=== PATIENT | female | born 1955 | race Caucasian/White ===

== ENCOUNTER → 2019-01-26 07:40 | Outpatient (CLI) | payer OTHER, SELFPAY ==
--- NOTE | 2019-01-26 | DI.MRI.S_ITS ---
PROCEDURE: MR SHOULDER RT WO CON INDICATIONS: Pain in right shoulder TECHNIQUE: Noncontrast oblique coronal T2 fast spin echo with fat saturation, oblique sagittal T1 spin echo and T2 fast spin echo with fat saturation, axial T1 spin echo and T2 fast spin echo with fat saturation through the shoulder. COMPARISON: [facility], , SHOULDER MINIMUM 2 VIEW LEFT, 08/09/2008, 13:43. FINDINGS: Image quality: Excellent. Rotator cuff: Partial-thickness articular and bursal side tear of the infraspinatus tendon without definite full-thickness defect. The supraspinatus tendon appears intact. Teres minor intact. There is mild subscapularis tendinopathy. No atrophy of the rotator cuff musculature Bones and bursae: No bone marrow contusions or fractures. Presumed reactive marrow edema present within the greater tuberosity. Moderate acromioclavicular joint degeneration. The acromion demonstrates conventional anatomy, without an os acromiale. No pathologic subacromial-subdeltoid or subcoracoid bursal fluid is present. Capsule and soft tissues: In the absence of intra-articular contrast, the labrum and glenohumeral ligaments appear intact. The long head of the biceps tendon demonstrates normal location and morphology. The rotator interval appears normal, without fibrosis. The coracohumeral ligament is normal in thickness. IMPRESSION: Partial thickness articular and bursal sided tear of the infraspinatus tendon. Mild subscapularis tendinopathy. Dictated by: Carlos Dumont M.D. on 01/26/2019 at 11:30 Approved by: Carlos Dumont M.D. on 01/26/2019 at 11:37
== END ==
PROVIDERS: Family Provider Family Medicine Geriatric Medicine; PCP Family Medicine Geriatric Medicine; Visit Provider Family Medicine Geriatric Medicine
DX: M25.511 Pain in right shoulder (principal); M75.111 Incomplete rotator cuff tear or rupture of right shoulder, not specified as traumatic
CPT/HCPCS: 73221

== ENCOUNTER → 2021-11-24 06:43 | Outpatient (CLI) | payer OTHER, MEDICARE, SELFPAY ==
--- NOTE | 2021-11-24 | DI.MRI.S_ITS ---
PROCEDURE: MR CERVICAL SPINE WO CON INDICATIONS: Cervicogenic headache TECHNIQUE: Noncontrast sagittal T1 spin echo and T2 fast spin echo, sagittal STIR, foraminal oblique sagittal T2 fast spin echo, and axial gradient echo or T2 fast spin echo through the cervical spine. COMPARISON: None. FINDINGS: Image quality: This examination is limited by involuntary motion artifact. Alignment and Curvature: There is straightening of the normal cervical lordosis. Minimal retrolisthesis is seen at the C4-C5 level. Bone Marrow: Marrow demonstrates normal overall signal. Spinal Cord: Visualized spinal cord has normal size and signal. No cerebellar tonsillar herniation. Paraspinous Soft Tissues: No paravertebral masses. Prevertebral soft tissues are normal in thickness. C2-C3: The disc height is well-preserved. Loss of disc signal is seen at this level. A mild degree of generalized disc osteophyte complex is seen. Mild to moderate facet hypertrophy is seen. There is mild right-sided and [id number] left-sided neural foraminal narrowing. No significant central canal narrowing is seen. C3-C4: Moderate loss of disc height is seen. Loss of disc signal is seen. Mild to moderate disc osteophyte complex is seen. Mild to moderate facet hypertrophy is seen. There is moderate to severe bilateral neural foraminal narrowing seen, right worse than left. Mild to moderate central canal narrowing is seen. C4-C5: Moderate loss of disc height is seen. Loss of disc signal is seen. Moderate generalized disc osteophyte complex is seen. Moderate facet joint hypertrophy is seen. Moderate to severe bilateral neural foraminal narrowing can be seen. Moderate central canal narrowing is seen. C5-C6: Moderate loss of disc height is seen. Loss of disc signal is seen. Moderate generalized disc osteophyte complex is seen. Mild to moderate facet hypertrophy is seen at this level. Moderate to severe bilateral neural foraminal narrowing can be seen, right worse than left. Mild to moderate central canal narrowing is seen. C6-C7: Moderate loss of disc height is seen. Loss of disc signal is seen. Moderate generalized disc osteophyte complex is seen. Mild facet joint hypertrophy is seen. Mild to moderate bilateral neural foraminal narrowing can be seen. Mild central canal narrowing is seen. C7-T1: Moderate loss of disc height is seen. Loss of disc signal is seen. Moderate generalized disc osteophyte complex is seen. Mild facet joint hypertrophy is seen. Moderate bilateral neural foraminal narrowing is seen. No significant central canal narrowing is seen. IMPRESSION: Multiple levels of cervical spine degenerative change are seen, which are worst inferiorly. Straightening of the normal cervical lordosis is seen, which is commonly observed in patients with muscular spasm. Dictated by: Layton Bailon M.D. on 11/24/2021 at 9:07 Approved by: Layton Bailon M.D. on 11/24/2021 at 9:10
== END ==
PROVIDERS: Family Provider Family Medicine Geriatric Medicine; PCP Family Medicine; Referring Provider Physical Medicine & Rehabilitation; Visit Provider Physical Medicine & Rehabilitation
DX: G44.86 Cervicogenic headache (principal); M47.812 Spondylosis without myelopathy or radiculopathy, cervical region
CPT/HCPCS: 72141

== ENCOUNTER → 2022-03-31 08:09 | Outpatient (CLI) | payer OTHER, MEDICARE, SELFPAY ==
[2022-03-31 08:43] LABS: COVID19 -Nasal RAPID POSITIVE (Negative)
--- NOTE | 2022-03-31 08:52 | PC.NURSE ---
Patient tested positive for covid pre-admit. Dr. Krishnamurthy notified that patient is asymptomatic and positive. Patient's procedure cancelled today. Patient notified in person and asked to reschedule. Patient stated understanding and will reschedule with the clinic.
== END ==
PROVIDERS: Family Provider Family Medicine Geriatric Medicine; PCP Family Medicine; Referring Provider Physical Medicine & Rehabilitation; Visit Provider Physical Medicine & Rehabilitation
DX: U07.1 COVID-19 (principal)
CPT/HCPCS: 87635

== ENCOUNTER 2022-05-12 08:10 | Outpatient (CLI) | payer OTHER, MEDICARE, SELFPAY ==
[2022-05-12] VITALS (7 sets, daily range): BP systolic 128–186; BP diastolic 63–91; PULSE 61–77; RESP 14–18; TEMP 36.4; O2SAT 95–100
--- NOTE | 2022-05-12 08:13 | DI.RAD.S_ITS ---
PROCEDURE: PAIN C/T INTERLAMINAR INJECT INDICATIONS: SPINAL STENOSIS COMPARISON: None. FINDINGS: Fluoroscopic spot filming was performed to verify placement of spinal needles at the C6-7 level(s), as labeled on the films. Appropriate location(s) of the needle tip(s) was confirmed by injection of iodinated contrast. IMPRESSION: C6-7 needle placement. Dictated by: Lalita Camarena M.D. on 05/12/2022 at 13:08 Approved by: Lalita Camarena M.D. on 05/12/2022 at 13:09
[2022-05-12] MEDS: MIDAZOLAM 2 MG/2 ML VIAL IV (10:08)
[2022-05-12] MEDS: DEXAMETHASONE 10 MG/ML VIAL 30 MG INJ (10:13)
[2022-05-12] MEDS: IOPAMIDOL 15 ML VIAL 3 ML INJ (10:13)
[2022-05-12] MEDS: BUPIVACAINE 0.25% (PF) VIAL 2 ML INJ (10:13)
--- NOTE | 2022-05-12 10:23 | P.PCN_ITS ---
Date/Time/Diagnoses Date of procedure: 05/12/22 Time of procedure: :23 Pre-procedure diagnosis: 1. CERVICAL STENOSIS, 2. CERVICAL HNP WITH UPPER EXTREMITY RADICULAR FEATURES Post-procedure diagnosis: same Procedure Notes Procedure: 1. FLUORSCOPICALLY GUIDED CONTRAST CONTROLLED INTERLAMINAR EPIDURAL STEROID INJECTION - C6/7 TL VENKATA Indications: Haley is referred by Dr. Peng for treatment of Cervical HNP with Upper Extremity Paresthesias. Physician: Boogie Krishnamurthy Total Fluoroscopy time (seconds): 25 Total sedation minutes: 11 Complications: none Procedure in detail & Post-procedure care: FINDINGS Cervical Stenosis due to disc deterioration and nerve root irritation and nerve root irritation DESCRIPTION OF PROCEDURE Fluoroscopically guided, contrast-controlled C6/7 translaminar epidural steroid injection with conscious sedation. Following review of allergy and review of potential side effects and complications, including, but not necessarily limited to, infection, allergic reaction, local tissue breakdown, temporary as well as permanent nerve injury, stroke, paralysis, and possible , the patient indicated that patient understood and agreed to proceed. An informed consent document was signed by the patient, witnessed by a nurse, and placed in the patient's chart. Additionally, other treatment options including modalities, medications, and physical therapy were reviewed with the patient. After review of previous anaesthesic history and IV conscious sedation the patient was deemed safe to proceed with today?s procedure with IV conscious sedation as ASA class II designation. Safety time-out was performed to confirm patient ID, procedure to be performed and site of procedure. IV sedation was accomplished with a combination of 2mg of Versed administered by the RN after DO order, titrated to patient comfort during the course of the procedure while the patient remained responsive to all verbal commands. In the prone position, following sterile prep and drape of the cervical region, the C6/7 translaminar space was identified fluoroscopically. The skin was anesthetized via a 25-gauge 1.5-inch needle with 1% lidocaine solution. At this point, a 25-gauge, 2.5-inch short bevel spinal needle was atraumatically introduced and advanced under fluoroscopic guidance into epidural space at the C6/7 translaminar space. Depth was confirmed on lateral view. Radiological data, including multiple fluoroscopic views of the cervical spine, reveal a spinal needle at the C6/7 translaminar space. Lateral views then show placement of the needle in the epidural space. Subsequent views show contrast material flowing superiorly and inferiorly in the epidural space. DSA fluoroscopy with live contrast injection, once again, confirmed no vascular or intrathecal uptake. At this point, using loss of resistance technique with saline and air, the epidural space was entered. Following negative aspiration, injection of approximately 1.5 cc of Isovue-[id number] with live fluoroscopy in the AP view confirmed epidural flow in the epidural space without vascular or intrathecal uptake observed. Subsequently, a test dose of 1cc of 1% lidocaine solution was injected and patient was observed for two minutes without signs or symptoms of complications, including abdominal pain, shortness of breath, bilateral upper or lower extremity weakness, nausea and vomiting, prior to steroid injection. At this point, 3cc or 30mg of dexamethasone was then injected without incident. The patient tolerated the procedure well without signs or symptoms of compl ications prior to being transferred to the recovery area for further monitoring, The patient was then transferred to the recovery area where they were observed for an appropriate period of time after the injection. The patient reported a VAS score of 6 prior to the procedure and a post-procedure VAS of 0. POST OP INSTRUCTIONS The patient was provided a Pain Log to continue to record their response to the target-specific procedure prior to follow-up visit with the referring provider. Additionally, specific post-injection care instructions and a contact number to our office were provided if concerns arise regarding possible complications associated with the procedure are suspected.
== END 2022-05-12 10:39 | disposition home or self-care (01) ==
LOC: RAD 08:12
PROVIDERS: Family Provider Family Medicine Geriatric Medicine; PCP Family Medicine; Referring Provider Physical Medicine & Rehabilitation; Visit Provider Physical Medicine & Rehabilitation
DX: M48.02 Spinal stenosis, cervical region (principal); M50.123 Cervical disc disorder at C6-C7 level with radiculopathy
CPT/HCPCS: 62321; 99152; J1100; J2250; J3490